=== PATIENT | male | born 1935 | race Caucasian/White ===

== ENCOUNTER 2018-02-25 21:26 | Emergency (ER) | payer OTHER ==
[2018-02-25] MEDS ORDERED: Insulin Regular, Human 100 Units/ML 3 ML Vial IV ONE ×2 (22:31→23:37)
[2018-02-25 23:08] LABS: CHLORIDE,CL 97 mmol/L (101-111); SODIUM,NA 133 mmol/L (135-145)
[2018-02-26] MEDS ORDERED: Insulin Regular, Human 100 Units/ML 3 ML Vial IV ONE (00:41)
--- NOTE | 2018-02-26 01:15 | EDM.PDOC ---
ED HPI GENERAL MEDICAL PROBLEM - General Chief Complaint: Diabetic Complaint Stated Complaint: [id number] DR CALLED HIM BLOOD SUGAR OVER 500 Time Seen by Provider: 02/25/18 22:20 Source of Information: Reports: Patient, RN, RN Notes Reviewed History Limitations: Reports: No Limitations - History of Present Illness INITIAL COMMENTS - FREE TEXT/NARRATIVE: Pt presents to the ER because he was called by his PCP in [place] and was told he needed to come to the ER. Pt states he had labs drawn in [place] today and when he got home he was notified that his blood sugar was greater than 500. Patient denies any c/o at this time. Patient states he only takes Metformin in the mornings, and states he does not regularly check his blood sugars. Onset: Today - Related Data Allergies Allergy/AdvReac Type Severity Reaction Status Date / Time lisinopril Allergy Cannot Verified 02/25/18 22:23 Remember Home Meds: Home Meds Aspirin [Ecotrin] 81 mg PO DAILY 02/25/18 [History] Clopidogrel [Plavix] 75 mg PO DAILY 02/25/18 [History] Hydrochlorothiazide 25 mg PO DAILY 02/25/18 [History] Losartan [Cozaar] 75 mg PO DAILY 02/25/18 [History] Metoprolol Tartrate 100 mg PO BID 02/25/18 [History] [place]-3/DHA/Epa/Fish Oil [Fish Oil 1,000 mg Softgel] 1 each PO BID 02/25/18 [ History] metFORMIN [Glucophage] 500 mg PO BIDMEALS 02/25/18 [History] oxyCODONE 5 mg PO TID PRN 02/25/18 [History] Past Medical History Cardiovascular History: Reports: High Cholesterol, Hypertension, Stents Other Cardiovascular History: 8 stents Respiratory History: Reports: Other (See Below) Other Respiratory History: Emphysema Musculoskeletal History: Reports: Back Pain, Chronic, Other (See Below) Other Musculoskeletal History: Bilateral hips Endocrine/Metabolic History: Reports: Diabetes, Type II Social & Family History - Tobacco Use Smoking Status *Q: Current Every Day Smoker Years of Tobacco use: 65 Packs/Tins Daily: 20 - Caffeine Use Caffeine Use: Reports: Coffee, Soda, Tea - Recreational Drug Use Recreational Drug Use: No ED ROS GENERAL - Review of Systems Review Of Systems: ROS reveals no pertinent complaints other than HPI. ED EXAM GENERAL NO PERIP PULSE - Physical Exam Exam: See Below Exam Limited By: No Limitations General Appearance: Alert, WD/WN, No Apparent Distress Eye Exam: Bilateral Eye: EOMI, Normal Inspection Ears: Normal External Exam, Hearing Grossly Normal Nose: Normal Inspection Throat/Mouth: Normal Inspection, Normal Voice, No Airway Compromise Head: Atraumatic, Normocephalic Neck: Normal Inspection, Supple, Non-Tender, Full Range of Motion Respiratory/Chest: No Respiratory Distress, No Accessory Muscle Use, Chest Non- Tender, Decreased Breath Sounds Cardiovascular: Normal Peripheral Pulses, Regular Rate, Rhythm, No Edema, No Gallop, No JVD, No Murmur, No Rub GI/Abdominal: Normal Bowel Sounds, Soft, Non-Tender, No Organomegaly, No Distention, No Abnormal Bruit, No Mass (Male) Exam: Deferred Rectal (Males) Exam: Deferred Back Exam: Normal Inspection, Full Range of Motion, NT Extremities: Normal Inspection, Normal Range of Motion, Non-Tender, Normal Capillary Refill, No Pedal Edema Neurological: Alert, Oriented, CN II-XII Intact, Normal Cognition, Normal Gait, Normal Reflexes, No Motor/Sensory Deficits Psychiatric: Normal Affect, Normal Mood Skin Exam: Warm, Dry, Intact, Normal Color, No Rash Lymphatic: No Adenopathy Course - Vital Signs Last Recorded V/S: Last Vital Signs Temp 99.0 F 02/26/18 01:01 Pulse 72 02/26/18 01:01 Resp 17 02/26/18 01:01 BP 129/70 02/26/18 01:01 Pulse Ox 97 02/26/18 01:01 - Orders/Labs/Meds Labs: Laboratory Tests 02/25/18 02/25/18 02/25/18 Range/Units 22:14 22:20 22:20 WBC 10.5 H (5.0-10.0) 10^3/uL RBC 4.93 (4.6-6.2) 10^6/uL Hgb 15.2 (14.0-18.0) g/dL Hct 43.5 (40.0-54.0) % MCV 88.2 (80-100) fL MCH 30.8 (27.0-34.0) pg MCHC 34.9 (33.0-35.0) g/dL Plt Count 272 (150-450) 10^3/uL Neut % (Auto) 61.3 (42.2-75.2) % Lymph % (Auto) 27.1 (20.5-50.1) % [place] % (Auto) 8.6 H (2-8) % Eos % (Auto) 2.3 (1.0-3.0) % Baso % (Auto) 0.7 (0.0-1.0) % Sodium 133 L (135-145) mmol/L Potassium 3.6 (3.6-5.0) mmol/L Chloride 97 L (101-111) mmol/L Carbon Dioxide 27.0 (21.0-31.0) mmol/L Anion Gap 12.6 BUN 24 H (7-18) mg/dL Creatinine 1.0 (0.6-1.3) mg/dL Est Cr Clr Drug Dosing 55.08 mL/min Estimated GFR (MDRD) > 60 BUN/Creatinine Ratio 24.00 Glucose 396 H (74-105) mg/dL POC Glucose 364 H (83-110) mg/dl Calcium 9.4 (8.4-10.2) mg/dl Total Bilirubin 0.5 (0.2-1.0) mg/dL AST 24 (10-42) IU/L ALT 27 (10-60) IU/L Alkaline Phosphatase 69 (42-121) IU/L Total Protein 7.8 (6.7-8.2) g/dl Albumin 3.5 (3.2-5.5) g/dl Globulin 4.3 Albumin/Globulin Ratio 0.81 18 02/26/18 02/26/18 Range/Units 23:24 00:24 01:11 WBC (5.0-10.0) 10^3/uL RBC (4.6-6.2) 10^6/uL Hgb (14.0-18.0) g/dL Hct (40.0-54.0) % MCV (80-100) fL MCH (27.0-34.0) pg MCHC (33.0-35.0) g/dL Plt Count (150-450) 10^3/uL Neut % (Auto) (42.2-75.2) % Lymph % (Auto) (20.5-50.1) % [place] % (Auto) (2-8) % Eos % (Auto) (1.0-3.0) % Baso % (Auto) (0.0-1.0) % Sodium (135-145) mmol/L Potassium (3.6-5.0) mmol/L Chloride (101-111) mmol/L Carbon Dioxide (21.0-31.0) mmol/L Anion Gap BUN (7-18) mg/dL Creatinine (0.6-1.3) mg/dL Est Cr Clr Drug Dosing mL/min Estimated GFR (MDRD) BUN/Creatinine Ratio Glucose (74-105) mg/dL POC Glucose 336 H 259 H 245 H (83-110) mg/dl Calcium (8.4-10.2) mg/dl Total Bilirubin (0.2-1.0) mg/dL AST (10-42) IU/L ALT (10-60) IU/L Alkaline Phosphatase (42-121) IU/L Total Protein (6.7-8.2) g/dl Albumin (3.2-5.5) g/dl Globulin Albumin/Globulin Ratio Meds: Medications Discontinued Medications Generic Name Dose Route Start Last Admin Trade Name Brunoq PRN Reason Stop Dose Admin Insulin Human Regular 10 unit 02/25/18 22:31 02/25/18 22:40 Humulin R IV 02/25/18 22:32 10 unit ONETIME ONE Administration Insulin Human Regular 5 unit 02/25/18 23:37 02/25/18 23:44 Humulin R IV 02/25/18 23:38 5 unit ONETIME ONE Administration Insulin Human Regular 10 unit 02/26/18 00:41 02/26/18 00:50 Humulin R IV 02/26/18 00:42 10 unit ONETIME ONE Administration Departure - Departure Time of Disposition: 01:14 Disposition: Home, Self-Care 01 Condition: Fair Clinical Impression: Hyperglycemia - Discharge Information Instructions: Hyperglycemia, [place], Type 2 Diabetes Mellitus, Diagnosis , Adult, [id number] Forms: ED Department Discharge Additional Instructions: Follow up with your primary care facility tomorrow morning. Check your blood sugars Take medications as previously prescribed.
== END 2018-02-26 01:23 | disposition home or self-care (01) ==
LOC: DL.ED 21:26
DX: E11.65 Type 2 diabetes mellitus with hyperglycemia (principal); E78.00 Pure hypercholesterolemia, unspecified; I10 Essential (primary) hypertension; Z79.82 Long term (current) use of aspirin; Z79.899 Other long term (current) drug therapy; Z88.8 Allergy status to other drugs, medicaments and biological substances; Z79.84 Long term (current) use of oral hypoglycemic drugs
CPT/HCPCS: 36415; 80053; 82962; 85025; 96374; 96376; 99283; J1815

== ENCOUNTER 2018-05-27 10:52 | Emergency (ER) | payer OTHER ==
--- NOTE | 2018-05-27 11:17 | EDM.PDOC ---
ED HPI GENERAL MEDICAL PROBLEM - General Chief Complaint: Upper Extremity Injury/Pain Stated Complaint: FELL RT RIB CAGE Time Seen by Provider: 05/27/18 11:14 Source of Information: Reports: Patient, RN, RN Notes Reviewed History Limitations: Reports: No Limitations - History of Present Illness INITIAL COMMENTS - FREE TEXT/NARRATIVE: Pt presents to ER by POV with c/o falling 10 days ago and hitting the right ribs. He is concerned that he may have broke a rib because the pain has got worse, rather than better. Denies any other injury. Pt reports Hx of chronic back pain, and the [place] doctor has treated him with oxycodone local [employer]. Pt states he ran out of the oxycodone today. He denies cough, SOB, fevers, or chills. Duration: Day(s): (10), Constant Location: Reports: Chest (Rt chest wall) Quality: Reports: Ache Severity: Severe Improves with: Reports: Rest Worsens with: Reports: Breathing, Movement Associated Symptoms: Reports: No Other Symptoms Treatments [employer]: Reports: Other Medication(s) Right Chest Pain Score (Numeric/FACES): 9 - Related Data Allergies Allergy/AdvReac Type Severity Reaction Status Date / Time lisinopril Allergy Cannot Verified 05/27/18 11:14 Remember Home Meds: Home Meds Aspirin [Ecotrin] 81 mg PO DAILY 02/25/18 [History] Clopidogrel [Plavix] 75 mg PO DAILY 02/25/18 [History] Hydrochlorothiazide 25 mg PO DAILY 02/25/18 [History] Losartan [Cozaar] 75 mg PO DAILY 02/25/18 [History] Metoprolol Tartrate 100 mg PO BID 02/25/18 [History] [place]-3/DHA/Epa/Fish Oil [Fish Oil 1,000 mg Softgel] 1 each PO BID 02/25/18 [ History] metFORMIN [Glucophage] 500 mg PO BIDMEALS 02/25/18 [History] oxyCODONE 5 mg PO TID PRN 02/25/18 [History] Past Medical History Cardiovascular History: Reports: High Cholesterol, Hypertension, Stents Other Cardiovascular History: 8 stents Respiratory History: Reports: COPD, Other (See Below) Other Respiratory History: Emphysema Musculoskeletal History: Reports: Back Pain, Chronic, Other (See Below) Other Musculoskeletal History: Bilateral hips Endocrine/Metabolic History: Reports: Diabetes, Type II Social & Family History - Family History Family Medical History: Noncontributory - Tobacco Use Smoking Status *Q: Current Every Day Smoker Tobacco Use Within Last Twelve Months: Cigarettes - Caffeine Use Caffeine Use: Reports: Coffee, Soda, Tea - Living Situation & Occupation Occupation: Retired Review of Systems - Review of Systems Review Of Systems: ROS reveals no pertinent complaints other than HPI. ED EXAM, GENERAL - Physical Exam Exam: See Below Exam Limited By: No Limitations General Appearance: Alert, WD/WN, No Apparent Distress, Other (well appearing elderly male) Nose: Normal Inspection Throat/Mouth: Normal Inspection, Normal Lips, Normal Voice, No Airway Compromise Head: Atraumatic, Normocephalic Neck: Normal Inspection, Supple, Non-Tender, Full Range of Motion Respiratory/Chest: No Respiratory Distress, No Accessory Muscle Use, Decreased Breath Sounds, Crackles (course breath sounds), Splinting, Other (no bruises or swelling ). No: Chest Non-Tender (Rt chest wall tenderness), Rhonchi, Wheezing , Stridor Cardiovascular: Regular Rate, Rhythm GI/Abdominal: Normal Bowel Sounds, Soft, Non-Tender Back Exam: No: Paraspinal Tenderness, Vertebral Tenderness Extremities: Normal Inspection, Normal Range of Motion, Non-Tender Neurological: Alert, Oriented, Normal Cognition, Normal Gait, No Motor/Sensory Deficits Psychiatric: Normal Affect, Normal Mood Skin Exam: Warm, Dry, Intact, Normal Color, No Rash Course - Vital Signs Last Recorded V/S: Last Vital Signs Temp 36.7 C 05/27/18 11:23 Pulse 54 L 05/27/18 11:23 Resp 16 05/27/18 11:23 BP 145/65 H 05/27/18 11:23 Pulse Ox 96 05/27/18 11:23 - Radiology Interpretation Free Text/Narrative:: X-ray right ribs: non-displaced fracture right 7th rib, see Rad. report. Departure - Departure Time of Disposition: 12:03 Disposition: Home, Self-Care 01 Condition: Good Clinical Impression: Right rib fracture Qualifiers: Encounter type: initial encounter Rib fracture type: single rib Fracture type: closed Qualified Code(s): S22.31XA - Fracture of one rib, right side, initial encounter for closed fracture - Discharge Information Instructions: Rib Fracture Forms: ED Department Discharge Additional Instructions: Take your oxycodone as prescribed for pain. Take several deep breathes every hour while awake to prevent development of pneumonia. [facility] if not improving as expected in the next 3 weeks.
--- NOTE | 2018-05-27 11:51 | CR ---
CLINICAL HISTORY: 83-year-old male with "rib pain" associated with fall. INTERPRETATION: Subtle cortical buckle (versus focal pleural hematoma) anterolateral right seventh ri b. Clinical? Some underlying midlung atelectasis. 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 Normal cardiac silhouette and mediastinal width. No alveolar edema or dependent effusion. No lung mass or hilar lymphadenopathy. No pneumothorax. CONCLUSION: Possible occult nondisplaced right seventh rib fracture. Clinical?
== END 2018-05-27 12:08 | disposition home or self-care (01) ==
LOC: DL.ED 10:52
DX: S22.31XA Fracture of one rib, right side, initial encounter for closed fracture (principal); E11.9 Type 2 diabetes mellitus without complications; J44.9 Chronic obstructive pulmonary disease, unspecified; Z88.8 Allergy status to other drugs, medicaments and biological substances; Z79.899 Other long term (current) drug therapy; F17.210 Nicotine dependence, cigarettes, uncomplicated; W18.00XA Striking against unspecified object with subsequent fall, initial encounter
CPT/HCPCS: 71101-RT; 99283

== ENCOUNTER 2018-12-23 12:00 | Emergency (ER) | payer OTHER ==
[2018-12-23] MEDS ORDERED: Sodium Chloride 0.9% 10 ML Syringe FLUSH PRN (12:09)
[2018-12-23] MEDS ORDERED: Albuterol/Ipratropium 3.0-0.5 MG/3 ML Neb Soln NEB ONE (12:09)
[2018-12-23] MEDS ORDERED: Sodium Chloride 0.9% 1,000 ML IV ONE (12:11)
[2018-12-23] MEDS ORDERED: methylPREDNISolone Sodium Succinate 125 MG/2 ML SDV IVPUSH ONE (12:11)
--- NOTE | 2018-12-23 12:11 | EDM.PDOC ---
ED HPI GENERAL MEDICAL PROBLEM - General Chief Complaint: ENT Problem Stated Complaint: COMING IN BY AMBULANCE Time Seen by Provider: 12/23/18 12:11 Source of Information: Reports: Patient, EMS, Old Records, RN, RN Notes Reviewed History Limitations: Reports: No Limitations - History of Present Illness INITIAL COMMENTS - FREE TEXT/NARRATIVE: Pt arrives from home [facility] with c/o recurrent Rt sided nose bleed, shortness of breath, nausea, and generalized weakness. He denies chest pain, syncope, fever, or chills. This is the pt's 4th ER visit by ambulance in 3 days for epistaxis. Pt presented on 12/21/18 with Rt sided epistaxis which was controlled by clearing of clot by blowing, followed by Rt nasal irrigation of Afrin + Lidocaine w/Epi. in 1:1 ratio and firm pressure. Pt declined nasal packing at that time, and was d/c 'd home after approx. 90 mins. of observation and no recurrent bleeding. Pt returned to the ER late that night with recurrent Rt epistaxis and a long nasal balloon (Rhino Rocket) was placed in the Rt nare with good hemostasis. On pt returned to the ER again with left sided epistaxis. One the 3rd ER visit the pt stated he has COPD and that he cannot breath adequately with packing in both nostrils. He would allow a packing of the acute left sided epistaxis only if the Rt Rhino Rocket was removed, which I did and there was no recurrence of Rt sided bleeding. Today he states that he has become too weak and short of breath to be home alone safely. [facility] not [facility] available and advises to have the pt admitted elsewhere. Duration: Recurring Location: Reports: Chest, Other (nose) Quality: Reports: Other (denies pain) Severity: Severe Improves with: Reports: None Worsens with: Reports: None Associated Symptoms: Reports: Cough (chronic) - Related Data Allergies Allergy/AdvReac Type Severity Reaction Status Date / Time lisinopril Allergy Cannot Verified 12/23/18 12:00 Remember Home Meds: Home Meds Aspirin [Ecotrin] 81 mg PO DAILY 02/25/18 [History] Losartan [Cozaar] 75 mg PO DAILY 02/25/18 [History] Metoprolol Tartrate 100 mg PO BID 02/25/18 [History] [place]-3/DHA/Epa/Fish Oil [Fish Oil 1,000 mg Softgel] 1 each PO BID 02/25/18 [ History] hydroCHLOROthiazide [Hydrochlorothiazide] 25 mg PO DAILY 02/25/18 [History] metFORMIN [Glucophage] 500 mg PO BIDMEALS 02/25/18 [History] oxyCODONE 5 mg PO TID PRN 02/25/18 [History] Past Medical History HEENT History: Reports: None Cardiovascular History: Reports: High Cholesterol, Hypertension, Stents Other Cardiovascular History: 8 stents Respiratory History: Reports: COPD, Other (See Below) Other Respiratory History: Emphysema Gastrointestinal History: Reports: None Genitourinary History: Reports: None Musculoskeletal History: Reports: Back Pain, Chronic, Other (See Below) Other Musculoskeletal History: Bilateral hips Neurological History: Reports: None Psychiatric History: Reports: None Endocrine/Metabolic History: Reports: Diabetes, Type II Hematologic History: Reports: None Immunologic History: Reports: None Oncologic (Cancer) History: Reports: None Dermatologic History: Reports: None - Infectious Disease History Infectious Disease History: Reports: None - Past Surgical History Head Surgeries/Procedures: Reports: None Social & Family History - Family History Family Medical History: Noncontributory - Tobacco Use Smoking Status *Q: Current Every Day Smoker Tobacco Use Within Last Twelve Months: Cigarettes Years of Tobacco use: 60 ((60+ yrs)) - Caffeine Use Caffeine Use: Reports: Coffee, Soda, Tea - Alcohol Use Alcohol Use History: Yes Date of 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 ED EXAM, ENT - Physical Exam Exam: See Below Exam Limited By: No Limitations General Appearance: Alert, No Apparent Distress, Other (Frail, elderly, pale appearing) Eye Exam: Bilateral Eye: Normal Inspection Ears: Normal External Exam, Hearing Grossly Normal Nose: Active Bleeding (Rt nare, unable to visualize site of bleeding. Left nare with Rhino Rocket in place from 12/22/18 with no sign of active bleeding.), Dried Blood Mouth/Throat: Normal Gums, Normal Lips, Other (nasal blood oozing down posterior pharynx) Head: Atraumatic, Normocephalic Neck: Normal Inspection, Supple, Non-Tender, Full Range of Motion Respiratory/Chest: No Respiratory Distress, No Accessory Muscle Use, Chest Non- Tender, Decreased Breath Sounds, Crackles (Course breath sounds), Wheezing. No : Rhonchi Cardiovascular: Regular Rate, Rhythm GI/Abdominal: Normal Bowel Sounds, Soft, Non-Tender, No Distention. No: Guarding, Rigid, Rebound (Male) Exam: Deferred Rectal (Males) Exam: Deferred Back: Normal Inspection Extremities: Normal Inspection Neurological: Alert, Oriented, No Motor/Sensory Deficits Psychiatric: Anxious Skin: Warm, Dry, Intact, No Rash, Pallor. No: Diaphoretic, Ecchymosis, Jaundice , Petechiae ED ENT PROCEDURES - Epistaxis Procedure Indication: Epistaxis Recent anticoagulants/antiplatlets: Yes Uncontrolled HTN: No Recent septal/nasal surgery: No Site of bleeding: Right Nare Clearing of clots: Patient Blew Nose Ice pack to area: No Anterior Packing: Inflatable Nasal Tampon Posterior packing: Long Nasal Tampon Complications: No Course - Vital Signs Last Recorded V/S: Last Vital Signs Temp 37.1 C 12/23/18 12:29 Pulse 68 12/23/18 12:29 Resp 16 12/23/18 12:29 BP 95/50 L 12/23/18 12:29 Pulse Ox 88 L 12/23/18 12:29 - Orders/Labs/Meds Orders: Active Orders 24 hr Category Date Time Status Notify Provider [RC] PRN Care 12/23/18 13:03 Active Peripheral IV Care [RC] . DIRECTED Care 12/23/18 12:09 Active RT Aerosol Therapy [RC] ASDIRECTED Care 12/23/18 12:09 Active Verify Patient Consent Obtain [RC] ASDIRECTED Care 12/23/18 13:01 Active RED BLOOD CELLS LP [BBK] Stat Lab 12/23/18 11:45 Results TYPE AND SCREEN [BBK] Stat Lab 12/23/18 11:45 Results UA RFX JAYLENE AND CULT IF INDIC [URIN] Stat Lab 12/23/18 12:18 Ordered Sodium Chloride 0.9% [Saline Flush] Med 12/23/18 12:09 Active 10 ml FLUSH ASDIRECTED PRN Peripheral IV Insertion Adult [OM.PC] Stat Oth 12/23/18 12:09 Ordered Transfuse PRBC [Transfuse Red Blood Cells] [COMM] Stat [facility] 12/23/18 13:00 Ordered Transfuse Red Blood Cells [COMM] Stat [facility] 12/23/18 13:00 Ordered Medication Orders Sodium Chloride (Saline Flush) 10 ml FLUSH ASDIRECTED PRN PRN Reason: Keep Vein Open Last Admin: 12/23/18 12:22 Dose: 10 ml Labs: Laboratory Tests 12/23/18 12/23/18 12/23/18 Range/Units 11:45 12:15 12:15 WBC 15.0 H (5.0-10.0) 10^3/uL RBC 2.88 L (4.6-6.2) 10^6/uL Hgb 8.8 L D (14.0-18.0) g/dL Hct 26.1 L (40.0-54.0) % MCV 90.6 (80-100) fL MCH 30.6 (27.0-34.0) pg MCHC 33.7 (33.0-35.0) g/dL Plt Count 262 (150-450) 10^3/uL Neut % (Auto) 71.1 (42.2-75.2) % Lymph % (Auto) 19.1 L (20.5-50.1) % [place] % (Auto) 9.0 H (2-8) % Eos % (Auto) 0.3 L (1.0-3.0) % Baso % (Auto) 0.5 (0.0-1.0) % PT 9.9 (9.0-12.0) SEC INR 1.0 (0.9-1.2) APTT 21.6 L (22.0-34.0) SEC Sodium (135-145) mmol/L Potassium (3.6-5.0) mmol/L Chloride (101-111) mmol/L Carbon Dioxide (21.0-31.0) mmol/L Anion Gap BUN (7-18) mg/dL Creatinine (0.6-1.3) mg/dL Est Cr Clr Drug Dosing Estimated GFR (MDRD) BUN/Creatinine Ratio Glucose (74-105) mg/dL Calcium (8.4-10.2) mg/dl Total Bilirubin (0.2-1.0) mg/dL AST (10-42) IU/L ALT (10-60) IU/L Alkaline Phosphatase (42-121) IU/L B-Natriuretic Peptide (0-100) pg/ml Total Protein (6.7-8.2) g/dl Albumin (3.2-5.5) g/dl Globulin Albumin/Globulin Ratio Blood Type AB POSITIVE Crossmatch See Detail 12/23/18 Range/Units 12:15 WBC (5.0-10.0) 10^3/uL RBC (4.6-6.2) 10^6/uL Hgb (14.0-18.0) g/dL Hct (40.0-54.0) % MCV (80-100) fL MCH (27.0-34.0) pg MCHC (33.0-35.0) g/dL Plt Count (150-450) 10^3/uL Neut % (Auto) (42.2-75.2) % Lymph % (Auto) (20.5-50.1) % [place] % (Auto) (2-8) % Eos % (Auto) (1.0-3.0) % Baso % (Auto) (0.0-1.0) % PT (9.0-12.0) SEC INR (0.9-1.2) APTT (22.0-34.0) SEC Sodium 136 (135-145) mmol/L Potassium 3.8 (3.6-5.0) mmol/L Chloride 105 (101-111) mmol/L Carbon Dioxide 22.0 (21.0-31.0) mmol/L Anion Gap 12.8 BUN 20 H (7-18) mg/dL Creatinine 1.1 (0.6-1.3) mg/dL Est Cr Clr Drug Dosing TNP Estimated GFR (MDRD) > 60 BUN/Creatinine Ratio 18.18 Glucose 313 H (74-105) mg/dL Calcium 8.6 (8.4-10.2) mg/dl Total Bilirubin 0.6 (0.2-1.0) mg/dL AST 23 (10-42) IU/L ALT 14 (10-60) IU/L Alkaline Phosphatase 51 (42-121) IU/L B-Natriuretic Peptide 30 (0-100) pg/ml Total Protein 6.3 L (6.7-8.2) g/dl Albumin 3.1 L (3.2-5.5) g/dl Globulin 3.2 Albumin/Globulin Ratio 0.97 Blood Type Crossmatch Meds: Medications Generic Name Dose Route Start Last Admin Trade Name Freq PRN Reason Stop Dose Admin Sodium Chloride 10 ml 12/23/18 12:09 12/23/18 12:22 Saline Flush FLUSH 10 ml ASDIRECTED PRN Administration Keep Vein Open Discontinued Medications Generic Name Dose Route Start Last Admin Trade Name Freq PRN Reason Stop Dose Admin Acetaminophen 650 mg 12/23/18 13:00 Tylenol PO 12/23/18 13:01 NOW ONE Albuterol/Ipratropium 3 ml 12/23/18 12:09 12/23/18 12:21 Duoneb 3.0-0.5 Mg/3 Ml NEB 12/23/18 12:10 3 ml ONETIME ONE Administration Diphenhydramine HCl 12.5 mg 12/23/18 13:00 Benadryl IV 12/23/18 13:01 ONETIME ONE Furosemide 40 mg 12/23/18 13:00 Lasix IV 12/23/18 13:01 NOW ONE Sodium Chloride 1,000 mls @ 999 mls/hr 12/23/18 12:11 12/23/18 12:21 Normal Saline IV 12/23/18 13:11 999 mls/hr .BOLUS ONE Administration Methylprednisolone Sodium Succinate 125 mg 12/23/18 12:11 12/23/18 12:21 Solu-Medrol IVPUSH 12/23/18 12:12 125 mg ONETIME ONE Administration Ondansetron HCl 4 mg 12/23/18 12:12 12/23/18 12:21 Zofran IV 12/23/18 12:13 4 mg ONETIME ONE Administration TXA 1000mg IV x1. - Radiology Interpretation Free Text/Narrative:: [facility] Final Radiology Report Call: [phone] assistance Online chat: [email or web address] Name: JIMMY PARRY Age: 83Years M Date: 12/23/2018 SSN: -- : [id number] Study: XR CHEST 1 VIEW Requesting Physician: MAVERICK HAMMOND Images: 1 Addl Studies: Provided Clinical History: Contrast: Contrast Medium: Contrast Amount: Contrast Method: CONFIDENTIALITY STATEMENT This report is intended only for use by the referring physician, and only in accordance with law. If you received this in error, call [phone]. Page 1 of 1 EXAM: XR Chest, 1 View EXAM DATE/TIME: 12/23/2018 12:22 PM CLINICAL HISTORY: 83 years old, male; Signs and symptoms; Shortness of breath; Patient HX: SOB TECHNIQUE: XR of the chest, 1 view. COMPARISON: No relevant prior studies available. FINDINGS: Lungs: Unremarkable. No consolidation. Pleural space: Unremarkable. No pleural effusion. No pneumothorax. Heart/Mediastinum: Unremarkable. No cardiomegaly. Bones/joints: Unremarkable. IMPRESSION: No acute findings. Thank you for allowing us to participate in the care of your patient. Dictated and Authenticated by: Darnell Lehay MD 12/23/2018 1:07 PM Central Time ([place] & [place]) Departure - Departure Time of Disposition: 13:54 Disposition: DC/Tfer to Located Within [facility] 02 Condition: Serious Clinical Impression: Recurrent epistaxis, Acute blood loss anemia, Acute exacerbation of chronic obstructive pulmonary disease (COPD) - Discharge Information *PRESCRIPTION DRUG MONITORING PROGRAM REVIEWED*: No *COPY OF PRESCRIPTION DRUG MONITORING REPORT IN PATIENT ITZ: No Forms: ED Department Discharge, Interfacility Transfer EMTALA - My Orders Last 24 Hours: My Active Orders 12/23/18 11:45 RED BLOOD CELLS LP [BBK] Stat TYPE AND SCREEN [BBK] Stat 12/23/18 12:09 Peripheral IV Care [RC] . DIRECTED RT Aerosol Therapy [RC] ASDIRECTED Sodium Chloride 0.9% [Saline Flush] 10 ml FLUSH ASDIRECTED PRN Peripheral IV Insertion Adult [OM.PC] Stat 12/23/18 12:18 UA RFX JAYLENE AND CULT IF INDIC [URIN] Stat 12/23/18 13:00 Transfuse PRBC [Transfuse Red Blood Cells] [COMM] Stat Transfuse Red Blood Cells [COMM] Stat 12/23/18 13:01 Verify Patient Consent Obtain [RC] ASDIRECTED 12/23/18 13:03 Notify Provider [RC] PRN - Assessment/Plan Last 24 Hours: My Active Orders 12/23/18 11:45 RED BLOOD CELLS LP [BBK] Stat TYPE AND SCREEN [BBK] Stat 12/23/18 12:09 Peripheral IV Care [RC] . DIRECTED RT Aerosol Therapy [RC] ASDIRECTED Sodium Chloride 0.9% [Saline Flush] 10 ml FLUSH ASDIRECTED PRN Peripheral IV Insertion Adult [OM.PC] Stat 12/23/18 12:18 UA RFX JAYLENE AND CULT IF INDIC [URIN] Stat 12/23/18 13:00 Transfuse PRBC [Transfuse Red Blood Cells] [COMM] Stat Transfuse Red Blood Cells [COMM] Stat 12/23/18 13:01 Verify Patient Consent Obtain [RC] ASDIRECTED 12/23/18 13:03 Notify Provider [RC] PRN
[2018-12-23] MEDS ORDERED: Ondansetron 4 MG/2 ML SDV IV ONE (12:12)
[2018-12-23 12:42] LABS: ANION GAP 12.8; CHLORIDE,CL 105 mmol/L (101-111); SODIUM,NA 136 mmol/L (135-145)
[2018-12-23] MEDS ORDERED: Furosemide 40 MG/4 ML VIAL IV ONE (13:00)
[2018-12-23] MEDS ORDERED: diphenhydrAMINE 50 MG/ML SDV IV ONE (13:00)
[2018-12-23] MEDS ORDERED: Acetaminophen 325 MG Tab PO ONE (13:00)
[2018-12-23] MEDS ORDERED: Tranexamic Acid 1,000 MG in Sodium Chloride 0.9% 100 ML IV ONE (14:15)
== END 2018-12-23 20:25 ==
LOC: DL.ED 12:00
DX: R04.0 Epistaxis (principal); J44.1 Chronic obstructive pulmonary disease with (acute) exacerbation; D62 Acute posthemorrhagic anemia; E78.00 Pure hypercholesterolemia, unspecified; E11.9 Type 2 diabetes mellitus without complications; F17.210 Nicotine dependence, cigarettes, uncomplicated; I10 Essential (primary) hypertension; Z79.899 Other long term (current) drug therapy; Z95.5 Presence of coronary angioplasty implant and graft; Z79.84 Long term (current) use of oral hypoglycemic drugs; Z88.8 Allergy status to other drugs, medicaments and biological substances
CPT/HCPCS: 30901; 36415; 36430; 71045; 80053; 81001; 83880; 85025; 85610; 85730; 86850; 86900; 86901; 86920; 86922; 94640; 96361; 96365; 96375; 99283; 99285; A9270; J1200; J1940; J2405; J2930; J7030; J7050; P9016; J7620-GY

== ENCOUNTER 2020-10-01 18:00 | Emergency (ER) | payer MEDICARE, MEDICAID ==
--- NOTE | 2020-10-01 19:41 | EDM.PDOC ---
ED HPI GENERAL MEDICAL PROBLEM - General Chief Complaint: General Time Seen by Provider: 10/01/20 19:30 Source of Information: Reports: Patient, RN History Limitations: Reports: No Limitations - History of Present Illness INITIAL COMMENTS - FREE TEXT/NARRATIVE: ED with c/o elevated BP tonight at home. Denied any symptoms. Routinely checks BP and usually 130's tonight up to 190. States takes medication as directed. Recent change in diabetes medication but no change to BP meds. Reports no symptoms at present. - Related Data Allergies Allergy/AdvReac Type Severity Reaction Status Date / Time lisinopril Allergy Cannot Verified 10/01/20 19:30 Remember Home Meds: Home Meds Aspirin [Ecotrin] 81 mg PO DAILY 02/25/18 [History] Losartan [Cozaar] 75 mg PO DAILY 02/25/18 [History] Metoprolol Tartrate 100 mg PO BID 02/25/18 [History] [place]-3/DHA/Epa/Fish Oil [Fish Oil 1,000 mg Softgel] 1 each PO BID 02/25/18 [History] hydroCHLOROthiazide [Hydrochlorothiazide] 25 mg PO DAILY 02/25/18 [History] metFORMIN [Glucophage] 500 mg PO BIDMEALS 02/25/18 [History] oxyCODONE 5 mg PO TID PRN 02/25/18 [History] Simvastatin [Zocor] 40 mg PO BID 12/23/18 [History] Past Medical History HEENT History: Reports: None Cardiovascular History: Reports: High Cholesterol, Hypertension, Stents Other Cardiovascular History: 8 stents Respiratory History: Reports: COPD, Other (See Below) Other Respiratory History: Emphysema Gastrointestinal History: Reports: None Genitourinary History: Reports: None Musculoskeletal History: Reports: Back Pain, Chronic, Other (See Below) Other Musculoskeletal History: Bilateral hips Neurological History: Reports: None Psychiatric History: Reports: None Endocrine/Metabolic History: Reports: Diabetes, Type II Hematologic History: Reports: None Immunologic History: Reports: None Oncologic (Cancer) History: Reports: None Dermatologic History: Reports: None - Infectious Disease History Infectious Disease History: Reports: None - Past Surgical History Head Surgeries/Procedures: Reports: None Social & Family History - Family History Family Medical History: No Pertinent Family History - Tobacco Use Tobacco Use Status *Q: Current Every Day Tobacco User Years of Tobacco use: 65 Packs/Tins Daily: 1 Second Hand Smoke Exposure: No - Caffeine Use Caffeine Use: Reports: Coffee - Recreational Drug Use Recreational Drug Use: No - Living Situation & Occupation Occupation: Retired ED ROS GENERAL - Review of Systems Review Of Systems: Comprehensive ROS is negative, except as noted in HPI. ED EXAM, GENERAL - Physical Exam Exam: See Below Exam Limited By: No Limitations General Appearance: Alert, No Apparent Distress, Anxious Eye Exam: Bilateral Eye: EOMI Ears: Normal External Exam, Hearing Grossly Normal Nose: Normal Inspection Throat/Mouth: Normal Inspection Head: Atraumatic, Normocephalic Respiratory/Chest: No Respiratory Distress, Lungs Clear, Normal Breath Sounds Cardiovascular: Normal Peripheral Pulses, Regular Rate, Rhythm, No Edema, No JVD GI/Abdominal: Normal Bowel Sounds, Soft Psychiatric: Normal Affect, Anxious (mild) Skin Exam: Warm, Dry, Intact, Normal Color Course - Vital Signs Last Recorded V/S: Last Vital Signs Temp 96.6 F L 10/01/20 19:15 Pulse 67 10/01/20 19:15 Resp 18 10/01/20 19:15 BP 146/61 H 10/01/20 19:29 Pulse Ox 97 10/01/20 19:15 - Re-Assessments/Exams Free Text/Narrative Re-Assessment/Exam: 10/02/20 04:38 BP checked multiple times by RN. Normal values. Patient inctructed continue home monitoring and follow up as needed. Departure - Departure Time of Disposition: 19:35 Disposition: Home, Self-Care 01 Condition: Good Clinical Impression: HTN (hypertension) - Discharge Information *PRESCRIPTION DRUG MONITORING PROGRAM REVIEWED*: No *COPY OF PRESCRIPTION DRUG MONITORING REPORT IN PATIENT ITZ: No Instructions: Hypertension, Adult, [id number] Forms: ED Department Discharge Additional Instructions: Take Medication as directed. Continue to monitor BP per usual routine Clinic follow up next week Urgent follow up if chest pain dizziness or weakness Sepsis Event Note (ED) - Evaluation Sepsis Screening Result: No Definite Risk - Focused Exam Vital Signs: Vital Signs Temp Pulse Resp BP Pulse Ox 10/01/20 19:29 146/61 H 10/01/20 19:15 96.6 F L 67 18 129/93 H 97 10/01/20 18:02 68 16 164/67 H 96
== END 2020-10-01 19:44 | disposition home or self-care (01) ==
LOC: DL.ED 18:00
DX: I10 Essential (primary) hypertension (principal); E78.00 Pure hypercholesterolemia, unspecified; J44.9 Chronic obstructive pulmonary disease, unspecified; E11.9 Type 2 diabetes mellitus without complications; F17.210 Nicotine dependence, cigarettes, uncomplicated; Z88.8 Allergy status to other drugs, medicaments and biological substances; Z79.82 Long term (current) use of aspirin; Z79.84 Long term (current) use of oral hypoglycemic drugs; Z79.899 Other long term (current) drug therapy
CPT/HCPCS: 99282; 99283

== ENCOUNTER 2020-11-29 16:59 | Emergency (ER) | payer MEDICARE, MEDICAID ==
--- NOTE | 2020-11-29 17:44 | EDM.PDOC ---
ED HPI GENERAL MEDICAL PROBLEM - General Chief Complaint: General Stated Complaint: HIGH BLOOD PRESSURE 180/72 Time Seen by Provider: 11/29/20 17:43 Source of Information: Reports: Patient, RN, RN Notes Reviewed History Limitations: Reports: No Limitations - History of Present Illness INITIAL COMMENTS - FREE TEXT/NARRATIVE: Pt presents to ER by POV with c/o high blood pressure. Pt states he feels completely normal with no symptoms whatsoever, but [facility] [employer] [facility] to check his BP at home once a day. Anytime his BP reads >160 systolic he gets a phone call instructing him to recheck his BP immediately. These call scare him that something might be wrong, then his pressure goes even higher. Today around 1400HRS his BP was 180/72. He didn't know what to do, so eventually he came to the ER. On arrival to the ER he was 164/68. Pt denies chest pain, shortness of breath, edema, or palpitations. Onset: Unknown/Unsure Duration: Chronic Location: Reports: Generalized Severity: Mild Improves with: Reports: None Worsens with: Reports: None - Related Data Allergies Allergy/AdvReac Type Severity Reaction Status Date / Time lisinopril Allergy Cannot Verified 11/29/20 17:28 Remember Home Meds: Home Meds Aspirin [Ecotrin] 81 mg PO DAILY 02/25/18 [History] Losartan [Cozaar] 100 mg PO DAILY 02/25/18 [History] Metoprolol Tartrate 100 mg PO BID 02/25/18 [History] [place]-3/DHA/Epa/Fish Oil [Fish Oil 1,000 mg Softgel] 1 each PO BID 02/25/18 [History] hydroCHLOROthiazide [Hydrochlorothiazide] 25 mg PO DAILY 02/25/18 [History] metFORMIN [Glucophage] 500 mg PO BIDMEALS 02/25/18 [History] oxyCODONE 5 mg PO TID PRN 02/25/18 [History] Simvastatin [Zocor] 40 mg PO BEDTIME 12/23/18 [History] Gabapentin [Neurontin] 100 mg PO TID 11/29/20 [History] NIFEdipine [Nifedipine] 20 mg PO DAILY 11/29/20 [History] glipiZIDE [Glucotrol XL] 10 mg PO BID 11/29/20 [History] Past Medical History HEENT History: Reports: None Cardiovascular History: Reports: High Cholesterol, Hypertension, Stents Other Cardiovascular History: 8 stents Respiratory History: Reports: COPD, Other (See Below) Other Respiratory History: Emphysema Gastrointestinal History: Reports: None Genitourinary History: Reports: None Musculoskeletal History: Reports: Back Pain, Chronic, Other (See Below) Other Musculoskeletal History: Bilateral hips Neurological History: Reports: None Psychiatric History: Reports: None Endocrine/Metabolic History: Reports: Diabetes, Type II Hematologic History: Reports: None Immunologic History: Reports: None Oncologic (Cancer) History: Reports: None Dermatologic History: Reports: None - Infectious Disease History Infectious Disease History: Reports: None - Past Surgical History Head Surgeries/Procedures: Reports: None Social & Family History - Family History Family Medical History: No Pertinent Family History - Tobacco Use Tobacco Use Status *Q: Current Every Day Tobacco User Years of Tobacco use: 70 Packs/Tins Daily: 1 Second Hand Smoke Exposure: No - Caffeine Use Caffeine Use: Reports: Coffee - Recreational Drug Use Recreational Drug Use: No - Living Situation & Occupation Living situation: Reports: Occupation: Retired ED ROS GENERAL - Review of Systems Review Of Systems: Comprehensive ROS is negative, except as noted in HPI. ED EXAM, GENERAL - Physical Exam Exam: See Below Exam Limited By: No Limitations General Appearance: Alert, WD/WN, No Apparent Distress, Anxious Nose: Normal Inspection, Normal Mucosa, No Blood Throat/Mouth: Normal Inspection, Normal Lips, Normal Voice, No Airway Compromise Head: Atraumatic, Normocephalic Neck: Normal Inspection, Supple, Non-Tender, Full Range of Motion Respiratory/Chest: No Respiratory Distress, Lungs Clear, Normal Breath Sounds, No Accessory Muscle Use, Chest Non-Tender Cardiovascular: Normal Peripheral Pulses, Regular Rate, Rhythm, No Edema, No Gallop, No JVD, No Murmur, No Rub GI/Abdominal: Normal Bowel Sounds, Soft, Non-Tender Extremities: Normal Inspection, No Pedal Edema Neurological: Alert, Oriented, Normal Cognition, Normal Gait, No Motor/Sensory Deficits Psychiatric: Anxious Skin Exam: Warm, Dry, Intact, Normal Color, No Rash Course - Vital Signs Last Recorded V/S: Last Vital Signs Temp 97.4 F 11/29/20 17:21 Pulse 65 11/29/20 17:21 Resp 16 11/29/20 17:21 BP 160/64 H 11/29/20 17:21 Pulse Ox 97 11/29/20 17:21 - Re-Assessments/Exams Free Text/Narrative Re-Assessment/Exam: 11/29/20 18:04 BP at discharge 130/65. Departure - Departure Time of Disposition: 17:54 Disposition: Home, Self-Care 01 Condition: Good Clinical Impression: Anxiety about health Hypertension Qualifiers: Hypertension type: unspecified Qualified Code(s): I10 - Essential (primary) hypertension - Discharge Information *PRESCRIPTION DRUG MONITORING PROGRAM REVIEWED*: Not Applicable *COPY OF PRESCRIPTION DRUG MONITORING REPORT IN PATIENT ITZ: Not Applicable Instructions: Hypertension, Adult, [id number] Forms: ED Department Discharge Additional Instructions: [facility] Your blood pressure reading today do not reveal a medical emergency. Sepsis Event Note (ED) - Evaluation Sepsis Screening Result: No Definite Risk - Focused Exam Vital Signs: Vital Signs Temp Pulse Resp BP Pulse Ox 11/29/20 17:21 97.4 F 65 16 160/64 H 97
== END 2020-11-29 18:04 | disposition home or self-care (01) ==
LOC: DL.ED 16:59
DX: I10 Essential (primary) hypertension (principal); F41.9 Anxiety disorder, unspecified; E78.00 Pure hypercholesterolemia, unspecified; E11.9 Type 2 diabetes mellitus without complications; J43.9 Emphysema, unspecified; F17.210 Nicotine dependence, cigarettes, uncomplicated; Z88.8 Allergy status to other drugs, medicaments and biological substances; Z79.82 Long term (current) use of aspirin; Z79.84 Long term (current) use of oral hypoglycemic drugs; Z79.899 Other long term (current) drug therapy
CPT/HCPCS: 99282; 99283

== ENCOUNTER 2021-12-19 14:09 | Emergency (ER) | payer MEDICARE, MEDICAID ==
[2021-12-19 15:36] LABS: ANION GAP 13.7 mEq/L (7-13); CHLORIDE,CL 106 mmol/L (98-107); SODIUM,NA 142 mmol/L (136-145)
[2021-12-19] MEDS ORDERED: Lidocaine 5% Oint 35.44 GM Tube TOP ONE (16:08)
[2021-12-19] MEDS ORDERED: Lidocaine 1% 30 ML SDV INJECT ONE (16:08)
== END 2021-12-19 17:03 | disposition home or self-care (01) ==
LOC: DL.ED 14:09
DX: M47.22 Other spondylosis with radiculopathy, cervical region (principal); J90 Pleural effusion, not elsewhere classified; I10 Essential (primary) hypertension; E78.00 Pure hypercholesterolemia, unspecified; J44.9 Chronic obstructive pulmonary disease, unspecified; E11.9 Type 2 diabetes mellitus without complications; Z79.84 Long term (current) use of oral hypoglycemic drugs; Z79.82 Long term (current) use of aspirin; Z79.899 Other long term (current) drug therapy; Z88.8 Allergy status to other drugs, medicaments and biological substances
CPT/HCPCS: 36415; 71045; 72125; 80053; 84484; 85027; 93005; 99284-25; A9270-GY

== ENCOUNTER 2021-12-20 04:56 | Emergency (ER) | payer MEDICARE, MEDICAID ==
[2021-12-20] MEDS ORDERED: Acetaminophen 325 MG Tab PO ONE (06:00)
[2021-12-20 06:25] LABS: ANION GAP 16.4 mEq/L (7-13); CHLORIDE,CL 109 mmol/L (98-109); SODIUM,NA 144 mmol/L (138-146)
[2021-12-20] MEDS ORDERED: Gabapentin 100 MG Cap PO ONE (06:37)
[2021-12-20] MEDS ORDERED: Losartan 50 MG Tab PO ONE (06:38)
[2021-12-20] MEDS ORDERED: Aspirin 81 MG Tab.EC PO ONE (06:40)
[2021-12-20] MEDS ORDERED: NIFEdipine 10 MG Cap PO ONE (06:40)
[2021-12-20] MEDS ORDERED: Metoprolol Tartrate 50 MG Tab PO ONE (06:40)
[2021-12-20] MEDS ORDERED: glipiZIDE 5 MG Tab.ER PO ONE (06:45)
== END 2021-12-20 07:00 | disposition home or self-care (01) ==
LOC: DL.ED 04:56
DX: M79.622 Pain in left upper arm (principal); J90 Pleural effusion, not elsewhere classified; E78.00 Pure hypercholesterolemia, unspecified; I10 Essential (primary) hypertension; J43.9 Emphysema, unspecified; E11.9 Type 2 diabetes mellitus without complications; Z72.0 Tobacco use; Z88.8 Allergy status to other drugs, medicaments and biological substances; Z79.82 Long term (current) use of aspirin; Z79.84 Long term (current) use of oral hypoglycemic drugs; Z79.899 Other long term (current) drug therapy
CPT/HCPCS: 36415; 80053; 83880; 84484; 85025; 93005; 99283; A9270; 93010; 99284